=== PATIENT | male | born 1965 | race Caucasian/White ===

== ENCOUNTER → 2019-04-11 07:58 | Outpatient (BNVA) | payer MEDICARE, MEDICAID, SELFPAY | PROVIDERS: Visit Provider Nurse Practitioner Family | DX: G62.9 Polyneuropathy, unspecified (principal); L03.90 Cellulitis, unspecified; F41.9 Anxiety disorder, unspecified; Z79.899 Other long term (current) drug therapy; I10 Essential (primary) hypertension; E55.9 Vitamin D deficiency, unspecified | CPT/HCPCS: 36415; 80053; 80061; 81001; 82306; 82607; 83036; 84443; 84550; 85025 ==

== ENCOUNTER → 2019-06-14 12:18 | Outpatient (BNVA) | payer MEDICARE, SELFPAY | PROVIDERS: Visit Provider Nurse Practitioner Family | DX: M15.9 Polyosteoarthritis, unspecified (principal); J43.9 Emphysema, unspecified | CPT/HCPCS: 71046 ==